=== PATIENT | male | born 1950 | race Caucasian/White ===

== ENCOUNTER 2022-11-05 08:48 | Day surgery (SDC) | payer MEDICARE, SELFPAY ==
--- NOTE | 2022-11-01 14:10 | HO.ANESPROP2 ---
Documented by User: Coco Rodriguez NP 11/01/22 14:11 HPI - Anesthesia Eval Consult details Narrative: 72yo M for Colonoscopy Xarelto for PE 2021 [facility] Past Medical History Medical History (Updated 11/01/22 @ 12:59 by Patito Carrion RN) BPH (benign prostatic hyperplasia) Crohn's disease H/O blood clots HTN (hypertension) SBO (small bowel obstruction) Surgical History Surgical History (Updated 11/01/22 @ 12:59 by Patito Carrion RN) Hx of cholecystectomy Social History Social History Patient Tobacco Use Status: Never used Tobacco Are you DNR?: No Advance Directives: No Advance Directives Information Provided: Yes Recently lost weight without trying: No Nutrition Risks: No Nutritional Risk Meds Allergies Allergy/AdvReac Type Severity Reaction Status Date / Time No Known Allergies Allergy Verified 11/01/22 12:57 Home Medications Medication Instructions Recorded Confirmed Last Taken Type cyanocobalamin (vitamin B-12) 1,000 mcg subcut QMONTH 11/01/22 11/01/22 10/21/22 History 1,000 mcg/mL injection solution infliximab 100 mg intravenous mg IV 11/01/22 11/01/22 Unknown History solution lisinopril 10 mg tablet 10 mg PO DAILY 11/01/22 11/01/22 Unknown History ondansetron HCl 4 mg tablet 4 mg PO TID 11/01/22 11/01/22 Unknown History pregabalin 50 mg capsule 50 mg PO DAILY 11/01/22 11/01/22 Unknown History rivaroxaban 20 mg tablet (Xarelto) 20 mg PO DAILY 11/01/22 11/01/22 11/02/22 History tizanidine 4 mg tablet 4 mg PO BEDTIME 11/01/22 11/01/22 Unknown History Exam Exam Date and Time: November 01, 2022 1410 Assessment and Plan Assessment Anesthesia Assessment: Chart Reviewed Documented by User: Sanjuana Chisholm MD 11/05/22 10:58 [facility] Past Medical History Medical History (Updated 11/01/22 @ 12:59 by Patito Carrion RN) BPH (benign prostatic hyperplasia) Crohn's disease H/O blood clots HTN (hypertension) SBO (small bowel obstruction) Family History Family history of problems with anesthesia: No Surgical History Surgical History (Updated 11/01/22 @ 12:59 by Patito Carrion RN) Hx of cholecystectomy History of Problems with Anesthesia: No Social History Social History Patient Tobacco Use Status: Never used Tobacco Are you DNR?: No Advance Directives: No Advance Directives Information Provided: Yes Recently lost weight without trying: No Nutrition Risks: No Nutritional Risk Meds Allergies Allergy/AdvReac Type Severity Reaction Status Date / Time No Known Allergies Allergy Verified 11/01/22 12:57 Home Medications Medication Instructions Recorded Confirmed Last Taken Type cyanocobalamin (vitamin B-12) 1,000 mcg subcut QMONTH 11/01/22 11/01/22 10/21/22 History 1,000 mcg/mL injection solution infliximab 100 mg intravenous mg IV 11/01/22 11/01/22 Unknown History solution lisinopril 10 mg tablet 10 mg PO DAILY 11/01/22 11/01/22 Unknown History ondansetron HCl 4 mg tablet 4 mg PO TID 11/01/22 11/01/22 Unknown History pregabalin 50 mg capsule 50 mg PO DAILY 11/01/22 11/01/22 Unknown History rivaroxaban 20 mg tablet (Xarelto) 20 mg PO DAILY 11/01/22 11/01/22 11/02/22 History tizanidine 4 mg tablet 4 mg PO BEDTIME 11/01/22 11/01/22 Unknown History Exam Airway Mallampati Class: II TM Dist: >3cm Neck ROM: Full Assessment and Plan Assessment Anesthesia Assessment: Anesthesia Plan Discussed Final Anesthetic Review Family History of Problems with Anesthesia: No History of Problems with Anesthesia: No NPO: Yes ASA Class: III Final Preanesthetic Review: No Changes in Pt Med Stat, Meds/Allgs Chart Reviewed, Consent Obtained/Reviewed and Anes Risks/Benef Reviewed Patient Risk: Intermediate Procedure Risk: Low Anesthetic Plan Anesthetic Plan: MAC: Disposition: Standard PACU
[2022-11-05 08:55] VITALS: BMI 25.9
[2022-11-05 09:22] VITALS: BP 133/96; PULSE 96; RESP 20; TEMP 36.3; O2SAT 98
[2022-11-05] MEDS: Lactated Ringers 1,000 ML 100 ML IVCONT (09:45)
--- NOTE | 2022-11-05 10:51 | P.HPSUR_ITS ---
Pre-Procedural Eval Section A Date of Service: 11/05/22 Section B Chief Complaint: Crohn's disease of small intestine with intestinal Details of Present Illness: see H&P no changes Relevant Family History (Specify if Yes): No Relevant Social History: None Present Medications: see Short Stay Collaborative assessment Medical History: No relevant PMH History of Previous Operations: No relevant previous surgery Allergies: Allergies Allergy/AdvReac Type Severity Reaction Status Date / Time No Known Allergies Allergy Verified 11/01/22 12:57 Review of Systems Sugical H&P ROS: Negative: Constitution, Cardiovascular, Respiratory, Neurol ogical, Psychiatric, Hem-Onc, Allergic/Immunologic, Gastrointestinal, Genitourinary, Musculoskeletal, Integumentary, Endocrine and Eyes/Ears/Nose/Throat Exam Surgical H&P Exam: Normal: HEENT, Normal: Heart, Normal: Lungs, Normal: Extremities, Normal: Abdomen, Normal: Skin and Normal: Neurological Plan Diagnosis/Plan: Unchanged I have reviewed the history and physical and performed a pertinent physical examination on my patient. No changes have occurred unless specified. Time Spent With Patient Time: Total time managing care of this patient today ____ minutes.
--- NOTE | 2022-11-05 11:27 | P.BOP_ITS ---
Brief Operative Note Date of Service: 11/05/22 Pre-op diagnosis: colonoscopy Post-op diagnosis: same Surgeon: Joni Marin Anesthesia: MAC Was an Boarding Kennel Or Cattery Operator used for this Procedure?: No Estimated blood loss (mL): 2 Pathology: other Condition: stable Disposition: PACU
[2022-11-05 11:30] VITALS: BP 103/70; PULSE 78; RESP 15; TEMP 37; O2SAT 95
[2022-11-05 11:45] VITALS: BP 156/81; PULSE 79; RESP 18; TEMP 36.7; O2SAT 96
--- NOTE | 2022-11-05 13:02 | OP_ITS ---
DATE OF SERVICE: 11/05/2022 SURGEON: Joni Marin MD INDICATIONS: Crohn disease. PREOPERATIVE DIAGNOSIS: POSTOPERATIVE DIAGNOSIS: PROCEDURE PERFORMED: Colonoscopy to the terminal ileum with biopsy. ESTIMATED BLOOD LOSS: COMPLICATIONS: ANESTHESIA: Monitored anesthesia care. ASSISTANTS: SPECIMENS: DESCRIPTION OF PROCEDURE: A history and physical was performed. The risks and benefits of the procedure were explained to the patient. Informed consent was obtained. The patient was placed in a left lateral decubitus position. A digital rectal exam was performed and was found to be normal. The Olympus pediatric video colonoscope was introduced into the rectum and advanced to the cecum without difficulty. The cecum was identified by transillumination, palpation, and identification of ileocecal valve. Examination was performed. The scope was removed. He tolerated the procedure well and was returned to the recovery area in stable condition. FINDINGS: The terminal ileum was examined and appeared normal. The visualized colonic mucosa was within normal limits without evidence of masses or ulcers. There was no evidence of active Crohn disease in the colon. Biopsies were obtained beginning in the terminal ileum extending throughout the colon. No polyps were identified. There was moderate sigmoid diverticulosis. Retroflexed examination showed moderate-sized internal hemorrhoids. IMPRESSION: Crohn disease. RECOMMENDATION: Follow up the biopsy results. MD COLTEN Cha/MODL / [id number]
== END 2022-11-05 12:15 | disposition home or self-care (01) ==
PROVIDERS: Visit Provider Internal Medicine Gastroenterology
PROC: 0DJD8ZZ Inspection of Lower Intestinal Tract, Via Natural or Artificial Opening Endoscopic (ICD-10-PCS; CPT 45378; principal; 2022-11-05 10:00)
DX: K50.90 Crohn's disease, unspecified, without complications (principal); K57.30 Diverticulosis of large intestine without perforation or abscess without bleeding; K64.8 Other hemorrhoids; I10 Essential (primary) hypertension; Z79.899 Other long term (current) drug therapy; Z86.711 Personal history of pulmonary embolism; Z79.01 Long term (current) use of anticoagulants; Z86.16 Personal history of COVID-19; Z87.891 Personal history of nicotine dependence; Z90.49 Acquired absence of other specified parts of digestive tract
CPT/HCPCS: 45380; 88305